=== PATIENT | male | born 2000 | race African-American/Black ===

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

== ENCOUNTER 2019-09-17 17:55 | Emergency (ER) | payer SELFPAY ==
[2019-09-17] MEDS ORDERED: traMADol HCl 50 MG TAB ONE (18:25)
--- NOTE | 2019-09-17 18:26 | RAD ---
4 views right knee: 09/17/2019 COMPARISON: None HISTORY: Twisted knee playing basketball FINDINGS: No fracture or dislocation. No radiopaque foreign body or subcutaneous gas. Probable small knee joint effusion. If there is clinical concern for internal derangement, follow-up right knee MRI suggested. IMPRESSION: No acute fracture or dislocation. Please see above discussion.
== END 2019-09-17 18:52 | disposition home or self-care (01) ==
LOC: NAV ERS 17:55
DX: S83.004A Unspecified dislocation of right patella, initial encounter (principal); S83.91XA Sprain of unspecified site of right knee, initial encounter; F17.290 Nicotine dependence, other tobacco product, uncomplicated; X50.1XXA Overexertion from prolonged static or awkward postures, initial encounter

== ENCOUNTER 2019-10-20 14:19 | Emergency (ER) | payer SELFPAY | END 2019-10-20 15:00 | disposition home or self-care (01) | LOC: NAV ERS 14:19 | DX: R51 Headache (principal); F17.290 Nicotine dependence, other tobacco product, uncomplicated | CPT/HCPCS: 99283 ==

== ENCOUNTER 2019-12-21 18:16 | Emergency (ER) | payer SELFPAY ==
[2019-12-21] MEDS ORDERED: Ibuprofen 200 MG TAB ONE (18:35)
== END 2019-12-21 18:49 | disposition home or self-care (01) ==
LOC: NAV ERS 18:16
DX: S29.011A Strain of muscle and tendon of front wall of thorax, initial encounter (principal); F17.290 Nicotine dependence, other tobacco product, uncomplicated; X50.9XXA Other and unspecified overexertion or strenuous movements or postures, initial encounter
CPT/HCPCS: 93005

== ENCOUNTER 2020-01-13 16:11 | Emergency (ER) | payer OTHER, SELFPAY ==
[2020-01-15 11:40] LABS: SARS-CoV-2 MS2 Positive; SARS-CoV-2 N Gene Negative; SARS-CoV-2 S Gene Negative; SARS-CoV-2 orf1ab Negative
== END 2020-01-13 17:10 | disposition home or self-care (01) ==
LOC: NAV ERS 16:11
DX: Z20.828 Contact with and (suspected) exposure to other viral communicable diseases (principal); J45.909 Unspecified asthma, uncomplicated; F17.290 Nicotine dependence, other tobacco product, uncomplicated
CPT/HCPCS: 87635; 99283; U0003

== ENCOUNTER 2020-03-07 10:33 | Emergency (ER) | payer SELFPAY ==
[2020-03-07] MEDS ORDERED: Ibuprofen 800 MG TAB ONE (11:18)
--- NOTE | 2020-03-07 11:36 | RAD ---
RIGHT ANKLE 3 VIEWS: HISTORY: Injury, right ankle pain FINDINGS: The ankle mortise is maintained. No acute fracture or dislocation is identified.
== END 2020-03-07 11:55 | disposition home or self-care (01) ==
LOC: NAV ERS 10:33
DX: S93.401A Sprain of unspecified ligament of right ankle, initial encounter (principal); J45.909 Unspecified asthma, uncomplicated; X50.1XXA Overexertion from prolonged static or awkward postures, initial encounter; Y93.01 Activity, walking, marching and hiking

== ENCOUNTER 2020-07-31 13:19 | Emergency (ER) | payer SELFPAY ==
[2020-07-31] MEDS ORDERED: Metoclopramide HCl 10 MG/2 ML VIAL ONE (13:56)
[2020-07-31] MEDS ORDERED: diphenhydrAMINE 50 MG/ML VIAL ONE (13:56)
[2020-07-31] MEDS ORDERED: Sodium Chloride 0.9% 1,000 ML ONE (13:57)
== END 2020-07-31 15:17 | disposition home or self-care (01) ==
LOC: NAV ERS 13:19
DX: G43.909 Migraine, unspecified, not intractable, without status migrainosus (principal); Z87.891 Personal history of nicotine dependence
CPT/HCPCS: 96365; 96375; J1200; J2765; J7050

== ENCOUNTER 2021-01-10 22:23 | Emergency (ER) | payer SELFPAY ==
[2021-01-10] MEDS ORDERED: predniSONE 20 MG TAB ONE (22:55)
[2021-01-12 15:29] LABS: SARS-CoV-2 PCR by NAA Not Detected (NotDetected)
== END 2021-01-10 23:04 | disposition home or self-care (01) ==
LOC: NAV ERS 22:23
DX: J34.89 Other specified disorders of nose and nasal sinuses (principal); R09.81 Nasal congestion; Z20.822 Contact with and (suspected) exposure to COVID-19; Z87.891 Personal history of nicotine dependence
CPT/HCPCS: 87804; 99283; J7512; U0003; U0005

== ENCOUNTER 2021-02-27 17:47 | Emergency (ER) | payer SELFPAY ==
[2021-02-27] MEDS ORDERED: Acetaminophen 500 MG TAB ONE (18:12)
[2021-02-28 23:13] LABS: SARS-CoV-2 PCR by NAA Not Detected (NotDetected)
== END 2021-02-27 18:59 | disposition home or self-care (01) ==
LOC: NAV ERS 17:47
DX: J06.9 Acute upper respiratory infection, unspecified (principal); Z20.822 Contact with and (suspected) exposure to COVID-19; R50.9 Fever, unspecified; J45.909 Unspecified asthma, uncomplicated; Z87.891 Personal history of nicotine dependence
CPT/HCPCS: 99283; U0003; U0005

== ENCOUNTER 2021-06-02 20:25 | Emergency (ER) | payer SELFPAY ==
[2021-06-02] MEDS ORDERED: Ibuprofen 200 MG TAB ONE (21:11)
[2021-06-02] MEDS ORDERED: Acetaminophen 325 MG TAB ONE (21:11)
[2021-06-02] MEDS ORDERED: Cyclobenzaprine 10 MG TAB ONE (21:11)
== END 2021-06-02 21:56 | disposition home or self-care (01) ==
LOC: NAV ERS 20:25
DX: M62.830 Muscle spasm of back (principal); M54.50 Low back pain, unspecified; J45.909 Unspecified asthma, uncomplicated
CPT/HCPCS: 99283

== ENCOUNTER 2021-08-10 17:26 | Emergency (ER) | payer SELFPAY | END 2021-08-10 18:33 | disposition home or self-care (01) | LOC: NAV ERS 17:26 | DX: S43.401A Unspecified sprain of right shoulder joint, initial encounter (principal); J45.909 Unspecified asthma, uncomplicated; X58.XXXA Exposure to other specified factors, initial encounter; Y93.67 Activity, basketball; Z87.19 Personal history of other diseases of the digestive system ==

== ENCOUNTER 2021-11-03 14:36 | Emergency (ER) | payer SELFPAY ==
[2021-11-03] MEDS ORDERED: Ondansetron ODT 4 MG TAB ONE (15:07)
== END 2021-11-03 15:09 | disposition home or self-care (01) ==
LOC: NAV ERS 14:36
DX: R11.2 Nausea with vomiting, unspecified (principal); J45.909 Unspecified asthma, uncomplicated
CPT/HCPCS: 99283; Q0162